=== PATIENT | female | born 1970 | race Caucasian/White ===

== ENCOUNTER 2018-05-31 06:57 | Emergency (ER) | payer OTHER ==
[~2018-05-31] VITALS: Ht 172.7 cm; Wt 136.1 kg
[2018-05-31] MEDS ORDERED: DIPHENHIST50 MG PO (09:30)
[2018-05-31] MEDS ORDERED: PREDNISONE50 MG PO (09:30)
[2018-05-31] MEDS ORDERED: EPIPEN 2-P0.3 MG/0.3 IM (09:30)
[2018-05-31 09:41] VITALS: BP 100/48
== END 2018-05-31 09:45 | disposition home or self-care (01) ==
LOC: M.ERS 06:57
DX: R22.0 Localized swelling, mass and lump, head (principal); T45.0X5A Adverse effect of antiallergic and antiemetic drugs, initial encounter; Y92.89 Other specified places as the place of occurrence of the external cause; Z88.0 Allergy status to penicillin; Z98.890 Other specified postprocedural states